=== PATIENT | female | born 1980 ===

== ENCOUNTER 2019-11-05 10:07 | Outpatient (CLI) | payer OTHER | END 2019-11-05 10:09 | disposition home or self-care (01) | LOC: RX STUDY 10:07 | DX: N85.6 Intrauterine synechiae (principal) ==

== ENCOUNTER 2022-08-09 07:45 | Inpatient (IN) | payer OTHER ==
[~2022-08-09] VITALS: Ht 162.6 cm; Wt 84.4 kg
[2022-08-09] MEDS ORDERED: JANUMET 50-5001 EACH PO (09:17)
[2022-08-09] MEDS ORDERED: COZAAR50 MG PO (09:17)
[2022-08-10] MEDS ORDERED: METFORMIN HCL850 M1 (08:49)
[2022-08-10] MEDS ORDERED: AMLODIPINE BESYL5 MG (08:49)
[2022-08-10] MEDS ORDERED: GLIMEPIRIDE2 M1 (08:49)
[2022-08-10] MEDS ORDERED: LOSARTAN-HCTZ1 EACH (08:49)
[2022-08-11] MEDS ORDERED: COLACE100 MG PO (09:36)
[2022-08-11] MEDS ORDERED: PERCOCET 5-3251 EACH PO (09:36)
== END 2022-08-11 16:11 | disposition home or self-care (01) | DRG 742 ==
LOC: O/R 08-10 06:00 → SURG 08-10 07:45 → OB/GYN 08-10 15:16 → SURG 08-10 18:30 → OB/GYN 08-10 20:23 → O/R 08-10 21:17 → OB/GYN 08-10 21:30
PROVIDERS: Surgery; ADMIT Student in an Organized Health Care Education/Training Program; ATTEND Student in an Organized Health Care Education/Training Program
PROC: 0DNP4ZZ Release Rectum, Percutaneous Endoscopic Approach (ICD-10-PCS; 2022-08-10)
PROC: 0DNN4ZZ Release Sigmoid Colon, Percutaneous Endoscopic Approach (ICD-10-PCS; 2022-08-10)
PROC: 0DQE4ZZ Repair Large Intestine, Percutaneous Endoscopic Approach (ICD-10-PCS; 2022-08-10)
PROC: 0DNW4ZZ Release Peritoneum, Percutaneous Endoscopic Approach (ICD-10-PCS; 2022-08-10)
PROC: 0DJD8ZZ Inspection of Lower Intestinal Tract, Via Natural or Artificial Opening Endoscopic (ICD-10-PCS; 2022-08-10)
PROC: 0UT74ZZ Resection of Bilateral Fallopian Tubes, Percutaneous Endoscopic Approach (ICD-10-PCS; principal; 2022-08-10 18:30)
PROC: 0UT24ZZ Resection of Bilateral Ovaries, Percutaneous Endoscopic Approach (ICD-10-PCS; 2022-08-10 18:30)
DX: D27.1 Benign neoplasm of left ovary (principal); K63.1 Perforation of intestine (nontraumatic); K91.72 Accidental puncture and laceration of a digestive system organ or structure during other procedure; D27.0 Benign neoplasm of right ovary; N70.11 Chronic salpingitis; N73.6 Female pelvic peritoneal adhesions (postinfective); Z20.822 Contact with and (suspected) exposure to COVID-19; N80.559 Endometriosis of other parts of the colon, unspecified depth

== ENCOUNTER 2022-12-01 09:35 | Inpatient (IN) | payer OTHER ==
[~2022-12-01] VITALS: Ht 162.6 cm; Wt 81.6 kg
[~2022-12-01 09:35] MED LIST: AMLODIPINE BESYL5 MG; COLACE100 MG PO; COZAAR50 MG PO; GLIMEPIRIDE2 M1; JANUMET 50-5001 EACH PO; LOSARTAN-HCTZ1 EACH; METFORMIN HCL850 M1; PERCOCET 5-3251 EACH PO
== END 2022-12-08 11:19 | disposition home or self-care (01) | DRG 743 ==
LOC: O/R 12-07 06:27 → OB/GYN 12-07 06:27
PROVIDERS: Surgery; ADMIT Obstetrics & Gynecology Gynecologic Oncology; ATTEND Obstetrics & Gynecology Gynecologic Oncology
PROC: 0UT24ZZ Resection of Bilateral Ovaries, Percutaneous Endoscopic Approach (ICD-10-PCS; 2022-12-07)
PROC: 07BC4ZZ Excision of Pelvis Lymphatic, Percutaneous Endoscopic Approach (ICD-10-PCS; 2022-12-07)
PROC: 0DNW4ZZ Release Peritoneum, Percutaneous Endoscopic Approach (ICD-10-PCS; 2022-12-07)
PROC: 0TN74ZZ Release Left Ureter, Percutaneous Endoscopic Approach (ICD-10-PCS; 2022-12-07)
PROC: 0TN64ZZ Release Right Ureter, Percutaneous Endoscopic Approach (ICD-10-PCS; 2022-12-07)
PROC: 0UT94ZZ Resection of Uterus, Percutaneous Endoscopic Approach (ICD-10-PCS; principal; 2022-12-07 10:15)
PROC: 0UT74ZZ Resection of Bilateral Fallopian Tubes, Percutaneous Endoscopic Approach (ICD-10-PCS; 2022-12-07 10:15)
DX: D25.1 Intramural leiomyoma of uterus (principal); N73.6 Female pelvic peritoneal adhesions (postinfective); Z20.822 Contact with and (suspected) exposure to COVID-19; N80.203 Endometriosis of bilateral fallopian tubes, unspecified depth; N80.103 Endometriosis of bilateral ovaries, unspecified depth; N80.399 Endometriosis of the pelvic peritoneum, other specified sites, unspecified depth